=== PATIENT | female | born 1990 | race American Indian/Alaskan Native ===

== ENCOUNTER 2017-12-15 05:30 | Emergency (ER) | payer SELFPAY ==
[2017-12-15] MEDS ORDERED: HYDROmorphone 0.5 MG/0.5 ML Syringe IM ONE (06:32)
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
[2017-12-15] MEDS ORDERED: HYDROmorphone 1 MG/ML Syringe IVPUSH ONE (06:40)
[2017-12-15] MEDS ORDERED: Sodium Chloride 0.9% 1,000 ML ONE (06:44)
[2017-12-15] MEDS ORDERED: HYDROmorphone 1 MG/ML Syringe IM ONE (06:44)
[2017-12-15] MEDS ORDERED: Sodium Chloride 0.9% 1,000 ML IV ONE (06:59)
== END 2017-12-15 08:20 ==
LOC: CC.ED 05:30
DX: M25.462 Effusion, left knee (principal); M25.472 Effusion, left ankle; S00.83XA Contusion of other part of head, initial encounter; S40.022A Contusion of left upper arm, initial encounter; S40.021A Contusion of right upper arm, initial encounter; S80.12XA Contusion of left lower leg, initial encounter; S80.11XA Contusion of right lower leg, initial encounter; S20.319A Abrasion of unspecified front wall of thorax, initial encounter; S10.91XA Abrasion of unspecified part of neck, initial encounter; Y04.8XXA Assault by other bodily force, initial encounter; Y07.03 Male partner, perpetrator of maltreatment and neglect
CPT/HCPCS: 73562-LT; 73610-LT; 96361; 96374; 99284; J1170; J7030